=== PATIENT | female | born 1995 | race Caucasian/White ===

== ENCOUNTER 2017-08-15 11:27 | Emergency (ER) | payer SELFPAY ==
[~2017-08-15] VITALS: Ht 167.6 cm; Wt 55.8 kg
[2017-08-15 11:32] VITALS: BP 123/67; PULSE 69; RESP 16; TEMP 98.8; O2SAT 100
[2017-08-15 11:55] VITALS: O2SAT 98
[2017-08-15 12:08] LABS: AUTOMATED NEUTROPHIL # 4.4 TH/MM3 (1.8-7.7); BASOPHIL # 0.1 TH/MM3 (0-0.2); BILIRUBIN, URINE NEG (NEG); BLOOD, URINE NEG (NEG); EOSINOPHIL # 0.4 TH/MM3 (0-0.4); EOSINOPHIL % 5.8 % (0.0-4.0); GLUCOSE,URINE NEG (NEG); HEMATOCRIT 39.4 % (35.0-46.0); HEMOGLOBIN 13.7 GM/DL (11.6-15.3); KETONE, URINE NEG (NEG); LYMPH % 20.1 % (9.0-44.0); LYMPHOCYTE # 1.4 TH/MM3 (1.0-4.8); MEAN CELL VOLUME 89.3 FL (80.0-100.0); MEAN CORPUSCULAR HGB CONC 34.7 % (32.0-36.0); MEAN PLATELET VOLUME 7.4 FL (7.0-11.0); MONO % 7.5 % (0.0-8.0); MONOCYTE # 0.5 TH/MM3 (0-0.9); NEUT % 65.6 % (16.0-70.0); NITRITE,URINE NEG (NEG); PLATELET COUNT 357 TH/MM3 (150-450); RED BLOOD COUNT 4.42 MIL/MM3 (4.00-5.30); RED CELL DISTRIBUTION WIDTH 13.4 % (11.6-17.2); URINE COLOR YELLOW (YELLW/STRAW); URINE LEUKOCYTE ESTERASE NEG (NEG); WHITE BLOOD COUNT 6.9 TH/MM3 (4.0-11.0)
--- NOTE | 2017-08-15 12:12 | PD ---
HPI Chief Complaint: GI Complaint Time Seen by Provider: 11:36 Travel History International Travel<30 days: No Contact w/Intl Traveler<30days: No Traveled to known affect area: No History of Present Illness HPI 21-year-old female complains of abdominal pain and blood in the stool. Patient states that his symptoms started about 5 days ago. Patient states that abdominal pain and cramping pain localized to lower abdomen. Patient denies any pain radiation. Patient denies any fever chills. Patient denies any nausea vomiting diarrhea. Patient has history of hemorrhoid in the past. Patient denies any headache. Patient denies any chest pain or shortness of breath. Patient denies dysuria or frequency. Patient denies any vaginal discharge or bleeding. Patient denies any chance of being . Patient has history of lactose intolerance. Patient states that she drank a glass of milk about 5 days ago and after that the symptoms started. PFSH Past Medical History Medical History: Denies Significant Hx Hx Anticoagulant Therapy: No Tetanus Vaccination: < 5 Years Influenza Vaccination: No ?: Not LMP: 1.5 weeks ago Past Surgical History Surgical History: No Previous Surgery Social History Alcohol Use: No Tobacco Use: No Substance Use: No Allergies-Medications (Allergen,Severity, Reaction): Coded Allergies: No Known Allergies (Unverified , 08/15/17) Reported Meds & Prescriptions Reported Meds & Active Scripts Active No Active Prescriptions or Reported Medications Review of Systems General / Constitutional: No: Fever Eyes: No: Visual changes HENT: No: Headaches Cardiovascular: No: Chest Pain or Discomfort Respiratory: No: Shortness of Breath Gastrointestinal: Positive: Abdominal Pain, Hematochezia Genitourinary: No: Dysuria Musculoskeletal: No: Pain Skin: No Rash Neurologic: No: Weakness Psychiatric: No: Depression Endocrine: No: Polydipsia Hematologic/Lymphatic: No: Easy Bruising Physical Exam Narrative GENERAL: Well-nourished, well-developed patient. SKIN: Focused skin assessment warm/dry. HEAD: Normocephalic. EYES: No scleral icterus. No injection or drainage. NECK: Supple, trachea midline. No JVD or lymphadenopathy. CARDIOVASCULAR: Regular rate and rhythm without murmurs, gallops, or rubs. RESPIRATORY: Breath sounds equal bilaterally. No accessory muscle use. GASTROINTESTINAL: Abdomen soft, nondistended. Patient has mild diffuse tenderness over the lower abdomen. No rebound tenderness. No mass. Rectal exam Hemoccult positive. Trace amount of fresh blood. MUSCULOSKELETAL: No cyanosis, or edema. BACK: Nontender without obvious deformity. No CVA tenderness. Neurologic exam normal. Data Data Last Documented VS Vital Signs Date Time Temp Pulse Resp B/P (MAP) Pulse Ox O2 Delivery O2 Flow Rate FiO2 08/15/17 11:55 98 Room Air 08/15/17 11:32 98.8 69 16 123/67 (85) Orders Orders Complete Blood Count With Diff (08/15/17 11:52) Comprehensive Metabolic Panel (08/15/17 11:52) Prothrombin Time / Inr (Pt) (08/15/17 11:52) Act Partial Throm Time (Ptt) (08/15/17 11:52) Lipase (08/15/17 11:52) Urinalysis - C+S If Indicated (08/15/17 11:52) Ct Abd/Pel W Iv Contrast(Rout) (08/15/17 11:52) Iv Access Insert/Monitor (08/15/17 11:52) Ecg Monitoring (08/15/17 11:52) Oximetry (08/15/17 11:52) Pantoprazole Inj (Protonix Inj) (08/15/17 12:15) Iohexol 350 Inj (Omnipaque 350 Inj) (08/15/17 12:42) Labs Laboratory Tests Test 08/15/17 11:50 White Blood Count 6.9 TH/MM3 Red Blood Count 4.42 MIL/MM3 Hemoglobin 13.7 GM/DL Hematocrit 39.4 % Mean Corpuscular Volume 89.3 FL Mean Corpuscular Hemoglobin 31.0 PG Mean Corpuscular Hemoglobin Concent 34.7 % Red Cell Distribution Width 13.4 % Platelet Count 357 TH/MM3 Mean Platelet Volume 7.4 FL Neutrophils (%) (Auto) 65.6 % Lymphocytes (%) (Auto) 20.1 % Monocytes (%) (Auto) 7.5 % Eosinophils (%) (Auto) 5.8 % Basophils (%) (Auto) 1.0 % Neutrophils # (Auto) 4.4 TH/MM3 Lymphocytes # (Auto) 1.4 TH/MM3 Monocytes # (Auto) 0.5 TH/MM3 Eosinophils # (Auto) 0.4 TH/MM3 Basophils # (Auto) 0.1 TH/MM3 CBC Comment DIFF FINAL Differential Comment Prothrombin Time 10.1 SEC Prothromb Time International Ratio 1.0 RATIO Activated Partial Thromboplast Time 25.0 SEC Urine Collection Type CLEAN CATCH Urine Color YELLOW Urine Turbidity CLEAR Urine pH 6.0 Urine Specific [place] 1.015 Urine Protein NEG mg/dL Urine Glucose (UA) NEG mg/dL Urine Ketones NEG mg/dL Urine Occult Blood NEG Urine Nitrite NEG Urine Bilirubin NEG Urine Urobilinogen 0.2 MG/DL Urine Leukocyte Esterase NEG Urine WBC 0-2 /hpf Urine Squamous Epithelial Cells 0-5 /hpf Microscopic Urinalysis Comment CULT NOT INDICATED Blood Urea Nitrogen 11 MG/DL Creatinine 0.68 MG/DL Random Glucose 90 MG/DL Total Protein 7.8 GM/DL Albumin 3.9 GM/DL Calcium Level 8.6 MG/DL Alkaline Phosphatase 49 U/L Aspartate Amino Transf (AST/SGOT) 16 U/L Alanine Aminotransferase (ALT/SGPT) 15 U/L Total Bilirubin 0.3 MG/DL Sodium Level 138 MEQ/L Potassium Level 4.1 MEQ/L Chloride Level 106 MEQ/L Carbon Dioxide Level 28.0 MEQ/L Anion Gap 4 MEQ/L Estimat Glomerular Filtration Rate 110 ML/MIN Lipase 112 U/L [facility] Medical Decision Making Medical Screen Exam Complete: Yes Emergency Medical Condition: Yes Interpretation(s) [address] scan abdomen pelvis negative acute pathology. CBC within normal limits. CMP within normal limits. UA is negative. Differential Diagnosis Differential diagnoses include hemorrhoidal bleed, colitis, AV malformation, upper versus lower GI bleed. Narrative Course 21-year-old female with low abdominal pain and blood per stool. HemaPrompt Point of Care Internal Pos. & Neg. Controls: Passed Fecal Specimen Occult Blood: Positive Diagnosis Primary Impression: GI bleed Qualified Codes: K92.2 - Gastrointestinal hemorrhage, unspecified Additional Impression: Gastroenteritis Patient Instructions: General Instructions Additional Instructions: Advised regular diet. Advised Bentyl and Lomotil as directed. Follow-up with personal physician. Return if persistent problem or worse. Med/Other Pt SpecificInfo: Prescription(s) given Scripts Diphenoxylate-Atropine (Lomotil) 2.5-0.025 Mg Tab 1 TAB PO Q6H Y for DIARRHEA, #10 TAB 0 Refills Prov: Charly He MD 3/26/18 Dicyclomine (Bentyl) 10 Mg Cap 10 MG PO TID Y for Bowel Management, #21 CAP 0 Refills Prov: Charly He MD 08/15/17 Pantoprazole (Protonix) 20 Mg Tab 20 MG PO DAILY for Reflux, #14 TAB 0 Refills Prov: Charly He MD 08/15/17 Disposition: 01 DISCHARGE HOME Condition: Stable Charly He MD Aug 15, 2017 12:12
[2017-08-15 12:14] LABS: SQUAMOUS EPITHELIAL CELL URINE 0-5 /hpf (0-5); WBC, URINE 0-2 /hpf (0-5)
[2017-08-15] MEDS ORDERED: PANTOPRAZOLE SODIUM 40 MG VIAL IV PUSH ONE (12:15)
[2017-08-15 12:16] LABS: CHLORIDE 106 MEQ/L (98-107); SODIUM (NA) 138 MEQ/L (136-145)
[2017-08-15 12:20] LABS: ALBUMIN 3.9 GM/DL (3.4-5.0); CALCIUM 8.6 MG/DL (8.5-10.1)
[2017-08-15 12:21] LABS: BLOOD UREA NITROGEN 11 MG/DL (7-18); GLUCOSE,RANDOM 90 MG/DL (74-106)
[2017-08-15 12:22] LABS: PROTHROMBIN TIME - PATIENT 10.1 SEC (9.8-11.6)
[2017-08-15 12:23] LABS: ALT (GPT) 15 U/L (9-42); AST (GOT) 16 U/L (16-38)
[2017-08-15 12:24] LABS: CREATININE 0.68 MG/DL (0.50-1.00); GLOMERULAR FILTRATION RATE 110 ML/MIN (>89)
[2017-08-15 12:25] LABS: TOTAL BILIRUBIN ADULT 0.3 MG/DL (0.2-1.0); TOTAL PROTEIN 7.8 GM/DL (6.4-8.2)
[2017-08-15 12:26] LABS: ALKALINE PHOSPHATASE 49 U/L (45-117)
[2017-08-15] MEDS ORDERED: IOHEXOL 350 MG/ML 10 ML VIAL (for RAD DIAG) IVCONTRAST ONE (12:42)
--- NOTE | 2017-08-15 12:59 | RADRPT ---
EXAM DATE/TIME: 08/15/2017 12:37 [facility] COMPARISON: No previous studies available for comparison. INDICATIONS : Lower abdominal cramping and blood in stool. IV CONTRAST: 90 cc Omnipaque 350 (iohexol) IV ORAL CONTRAST: No oral contrast ingested. RADIATION DOSE: 4.64 CTDIvol (mGy) MEDICAL HISTORY : None SURGICAL HISTORY : None. ENCOUNTER: Initial ACUITY: 4 - 6 days PAIN SCALE: 6/10 LOCATION: lower quadrant TECHNIQUE: Volumetric scanning of the abdomen and pelvis was performed. Using automated exposure control and ad justment of the mA and/or kV according to patient size, radiation dose was kept as low as reasonably achievable to obtain optimal diagnostic quality images. DICOM format image data is available electro nically for review and comparison. FINDINGS: LOWER LUNGS: The visualized lower lungs are clear. LIVER: Mild hepatomegaly is noted. Homogeneous density without lesion. There is no dilation of the biliary tree. No calcified gallstones. SPLEEN: Normal size without lesion. PANCREAS: Within normal limits. KIDNEYS: Normal in size and shape. There is no mass, stone or hydronephrosis. ADRENAL GLANDS: Within normal limits. VASCULAR: There is no aortic aneurysm. BOWEL/MESENTERY: The stomach, small bowel, and colon demonstrate no acute abnormality. There is no free intraperitone al air or fluid. The appendix is normal. ABDOMINAL WALL: Within normal limits. RETROPERITONEUM: There is no lymphadenopathy. BLADDER: No wall thickening or mass. REPRODUCTIVE: Minimal free fluid is noted within the left adnexal region. 1.7 cm right ovarian cyst is noted. INGUINAL: There is no lymphadenopathy or hernia. MUSCULOSKELETAL: Mild scoliosis of the lumbar spine is noted. CONCLUSION: 1. Mild hepatomegaly. 2. Minimal free fluid within the left adnexal region. 3. 1.7 cm right ovarian cyst. Zeferino Miramontes MD on August 15, 2017 at 12:50 Board Certified Radiologist. This report was verified electronically.
[2017-08-15 13:20] VITALS: BP 111/67; PULSE 81; RESP 14; O2SAT 98
[2017-08-15] MEDS ORDERED: PANT20 PO (13:30)
[2017-08-15] MEDS ORDERED: DICY10 PO (13:30)
[2017-08-15] MEDS ORDERED: LOMO2.5T PO (13:30)
== END 2017-08-15 13:40 | disposition home or self-care (01) ==
LOC: PHED 11:27
DX: K92.2 Gastrointestinal hemorrhage, unspecified (principal); K52.9 Noninfective gastroenteritis and colitis, unspecified; R16.0 Hepatomegaly, not elsewhere classified; N83.201 Unspecified ovarian cyst, right side; E73.9 Lactose intolerance, unspecified
CPT/HCPCS: 74177; 80053; 81001; 83690; 85025; 85610; 85730; 96374; 99285; C9113; Q9967